=== PATIENT | male | born 1970 | race Caucasian/White ===

== ENCOUNTER 2017-11-02 17:54 | Observation (INO) | payer OTHER ==
[2017-11-02] MEDS ORDERED: NS 1,000 ML IV ONE (19:40)
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
[2017-11-02 20:10] LABS: PLATELET COUNT 220 10^3/uL (150-400)
[2017-11-02] MEDS ORDERED: ceFAZolin 2 GM/DEXTROSE 100 ML IV ONE (20:30)
[2017-11-02] MEDS ORDERED: LR 1,000 ML IV ONE (20:40)
--- NOTE | 2017-11-02 20:40 | PDGENHP ---
History and Physical History and Physical: history and physical cc. right hip pain. 1 month ago fell, has had swelling over the area. [address] aspirated the area. it is now red and fluctuant. 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 uziel ashford m.d.
[2017-11-02] MEDS ORDERED: BUPIVACAINE 0.25% 30 ML SDV ONE (20:45)
[2017-11-02] MEDS ORDERED: BACITRACIN 50,000 UNITS/10 ML SYR IRR ONE (20:45)
[2017-11-02] MEDS ORDERED: POLYMYXIN B SULFATE 500,000 UNIT/10 ML SYR IRR ONE (20:45)
[2017-11-02] MEDS ORDERED: MIDAZOLAM 2 MG/2 ML VIAL IVP ONE (21:14)
[2017-11-02] MEDS ORDERED: MIDAZOLAM 2 MG/2 ML VIAL ONE (21:15)
--- NOTE | 2017-11-02 21:16 | PDANEPAE ---
ANE History of Present Illness 47 year old with thigh abcess ANE Past Medical History - Pulmonary History Hx Oxygen in Use at Home: No Hx Sleep Apnea: No - Endocrine History Hx Diabetes: No ANE Review of Systems Review of systems is: negative Review of Systems: ANE Patient History - Allergies Allergies/Adverse Reactions: No Known Allergies Allergy (Unverified 11/02/17 18:01) - Home Medications Home medications: home medication list seen and reviewed Home Medications: Herbals/Supplements -Info Only 1 ea PO DAILY 11/02/17 [Last Taken Unknown] Ibuprofen [Motrin (*)] 600 mg PO DAILY PRN 11/02/17 [Last Taken 11/02/17 06:00] - NPO status NPO Since - Liquids (Date): 11/02/17 NPO Since - Liquids (Time): 16:30 NPO Since - Solids (Date): 11/02/17 NPO Since - Solids (Time): 16:30 - Anes Hx Anes Hx: no prior problems - Smoking Hx Smoking Status: Never smoked ANE Labs/Vital Signs - Labs Result Diagrams: 11/02/17 19:50 11/02/17 19:50 - Vital Signs Blood Pressure: 129/85 Heart Rate: 45 Respiratory Rate: 12 O2 Sat (%): 99 Height: 180.34 cm Weight: 69.4 kg ANE Physical Exam - Airway Neck exam: FROM Mallampati Score: Class 1 Mouth exam: normal dental/mouth exam - Pulmonary Pulmonary: no respiratory distress, clear to auscultation - Cardiovascular Cardiovascular: regular rate and rhythym - ASA Status ASA Status: I, E ANE Anesthesia Plan Anesthesia Plan: general endotracheal anesthesia
[2017-11-02] MEDS ORDERED: fentaNYL 100 MCG/2 ML INJ ONE (21:20)
[2017-11-02] MEDS ORDERED: PROPOFOL 200 MG/20 ML VIAL ONE (21:20)
[2017-11-02] MEDS ORDERED: HYDROCODONE/APAP 5/325 TAB PO PRN (22:10)
[2017-11-02] MEDS ORDERED: ONDANSETRON 4 MG/2 ML VIAL IVP PRN ×2 (22:10→22:21)
--- NOTE | 2017-11-02 22:19 | POSTOPPROG ---
Post Op Note Date of Operation: 11/02/17 Surgeon: David Dietrich Pre-op Diagnosis: abscess right hip Post-op Diagnosis: same Indication: cellultis or abscess right hip Procedure: drainage right hip abscess Findings: cloudy fluid, no pus Inf/Abcess present in the surg proc area at time of surgery?: Yes Depth: Superfical (Skin SQ) EBL: Minimal Drains: [place]
[2017-11-02] MEDS ORDERED: PROMETHAZINE HCL 25 MG/ML INJ IVP PRN (22:21)
[2017-11-02] MEDS ORDERED: fentaNYL 100 MCG/2 ML INJ IVP PRN (22:21)
[2017-11-02] MEDS ORDERED: NALOXONE HCL 0.4 MG/ML INJ IVP PRN (22:21)
--- NOTE | 2017-11-02 22:23 | POSTANESTH ---
Post Anesthetic Evaluation Cardiovascular Status: Normal, Stable Respiratory Status: Normal, Stable Level of Consciousness/Mental Status: Can Participate in Eval Pain Control: Adequate, Prn Tx Ordered Nausea/Vomiting Control: Adequate, Prn Tx Ordered Complications Possibly Related to Anesthesia: None Noted
[2017-11-02] MEDS ORDERED: LR 1,000 ML IV SCH (22:30)
--- NOTE | 2017-11-02 22:37 | GOP ---
[f rep st] PREOP HISTORY AND PHYSICAL DATE OF ADMISSION: 11/02/2017 PREOPERATIVE DIAGNOSIS: Abscess versus cellulitis, right hip. POSTOPERATIVE DIAGNOSIS: Abscess versus cellulitis, right hip. OPERATION: Incision and drainage, right hip abscess. SURGEON: Dr. Dietrich. INDICATIONS: A 47-year-old male presents with swelling, pain, and erythema, of the right hip. He pr eviously had fallen on this a month ago and had a fluid collection which had been aspirated. Now it is getting more swollen and erythematous. DETAILS OF PROCEDURE: The patient was given a general anesthetic. The area was scrubbed with Betadi ne and an incision made and fluid evacuated itself under pressure from the wound. This was cultured. It was cloudy but not grossly purulent. Several liters of warm saline were used to irrigate the wo und. Then a 1/2-inch Denise drain was placed in the inferior aspect where the incision was made, pu shed up cephalad, then sewn in place with 4-0 Prolene. It was then covered with 4x4s and gauze. The patient tolerated the procedure well. /[id number]/MODL
[2017-11-03] MEDS ORDERED: IBUPROFEN 600 MG TAB PO SCH (06:00)
--- NOTE | 2017-11-03 11:15 | SOAPPROG ---
SOAP Progress Note Assessment/Plan: 11/03/2017 POD#1 Assessment: Doing well. drainage moderate.VSS erythema less per patient. outlined with marker Plan: Discharge. leave casimiro in place Keflex Use heating pad 45 min/4xper day Subjective: I'm feeling much better Objective: Vital Signs Temp Pulse Resp BP Pulse Ox 36.6 C 69 16 119/72 96 11/03/17 07:39 11/03/17 07:39 11/03/17 07:39 11/03/17 07:39 11/03/17 07:39 Microbiology 11/02/17 21:53 Gram Stain - Final Hip - Anaerobic Tube/Swab 11/02/17 11/03/17 11/04/17 05:59 05:59 05:59 Intake Total 1600 Output Total 585 450 Balance 1015 -450 - Time Spent With Patient Time Spent With Patient: 15 - Pending Discharge Pending Discharge Within 24 Hours: Yes Pending Discharge Date: 11/03/17 Pending Discharge Time: 13:00 Physical Exam - Physical Exam Extremities: other (Right lateral thigh continues to drain serosanguinous fluid. erythema outlined with marker, per patient swelling and erythema markedly reduced) ICD10 Worksheet Patient Problems: Problems Problem Status Onset Cellulitis of right hip Acute Hematoma of right hip Acute
--- NOTE | 2017-11-03 11:35 | ASDISCHSUM ---
Discharge Information Plan Status:Home with No Needs Medically Cleared to Leave: Discharge Date: CM D/C Disposition:Home, Routine, Self-Care ADT D/C Disposition:Home, Routine, Self-Care Projected Discharge Date: Transportation at D/C:Family Discharge Delay Reason: Follow-Up Date: Discharge Slot: Final Diagnosis: Placement Information Patient Contact Information Contact Name:NUNO Relationship: Address: Work Phone: City:[address] Alternate Phone: State/Zip Code:[place] [address] Email: Financial Information Financial Class:BCOP Primary Plan Desc:HILARIO MURRAY PPO [employer] [employer] Primary Plan Number:[id number] Secondary Plan Desc: Secondary Plan Number: Assessment Information LACE LACE Length of stay for Answers: Less than 1 day current admission Acuity / Level of Answers: No Care: Did the patient have an inpatient admission? # of Emergency department Answers: 0 visits in the last 6 months Date Signed: 11/03/2017 11:34 AM Electronically Signed By:Herminia Kraus Intervention Information
--- NOTE | 2017-11-03 11:46 | GDS ---
[f rep st] DISCHARGE SUMMARY DIAGNOSIS: Cellulitis, right thigh, with seroma. PROCEDURE: I and D of cellulitis/seroma with [place] drain placement. CONDITION AT DISCHARGE: Improved. DISPOSITION: Home. DIET: No restrictions. He will be taking Tylenol 1000 mg every 8 hours. He will supplement that with Motrin 200 mg every 6 hours; both of those were scheduled. He will be given Dilaudid 2 mg to take for breakthrough. He will take Keflex 500 mg every 6 hours for 5 days. He will continue his Zyrtec. He is to change his dressing at least daily or more frequently if moist. He is to cover the wound with 4 x 4 gauze. He will follow up on Sunday or Sunday with Dr. Dietrich. If he has redness beyond the marked line or if pain increases, he is to call or return to the ER. He was using a heating pad (electric) for 45 minutes 4 times a day, to sponge bathe only. Return to see Dr. Dietrich on Sunday; that number has been given to him. HOSPITAL COURSE: He has done well overnight. He shows a moderate amount of drainage. He will be dismissed today. /[id number]/MODL MTDD
[2017-11-03 12:10] VITALS: BP 107/62
--- NOTE | 2017-11-03 12:53 | ASMTDCNOTE ---
Case Management Discharge Discharge Order Complete? Answers: Yes Patient to Obtain Answers: Independently Medications Transportation Arranged Answers: Family/Friends Discharge Comments Notes: Pt is D/Cing home independently as no CM needs were identified. Date Signed: 11/03/2017 12:52 PM Electronically Signed By:Dawna Hamilton RN
== END 2017-11-03 12:26 | disposition home or self-care (01) ==
LOC: EDLOC 20:29 → F3N 22:44
PROVIDERS: ADMIT Surgery; ATTEND Surgery
PROC: 0J9L00Z Drainage of Right Upper Leg Subcutaneous Tissue and Fascia with Drainage Device, Open Approach (ICD-10-PCS; principal; 2017-11-02 21:00)
DX: L03.115 Cellulitis of right lower limb (principal); S70.01XA Contusion of right hip, initial encounter; E86.9 Volume depletion, unspecified; S70.211D Abrasion, right hip, subsequent encounter; Y93.55 Activity, bike riding; V18.4XXD Pedal cycle driver injured in noncollision transport accident in traffic accident, subsequent encounter
CPT/HCPCS: 27301; 73502; 96361; 96374; 99285; G0378; J0690; J2250; J2704; J3010